=== PATIENT | female | born 1990 | race Two or more races ===

== ENCOUNTER 2020-02-08 08:45 | Inpatient (IN) | payer OTHER ==
[~2020-02-08] VITALS: Ht 154.9 cm; Wt 68.5 kg
[2020-02-14] MEDS ORDERED: INTEGRA F CAPS1 EACH PO (09:46)
== END 2020-02-16 11:00 | disposition home or self-care (01) | DRG 807 ==
LOC: LDR 02-14 06:41 → SURG-SUITE 02-14 06:41 → LDR 02-14 06:47 → SURG-SUITE 02-14 15:47 → SURH 02-15 08:45 → SURG-SUITE 02-15 18:08
PROVIDERS: ADMIT Obstetrics & Gynecology; ATTEND Obstetrics & Gynecology
PROC: 10E0XZZ Delivery of Products of Conception, External Approach (ICD-10-PCS; principal; 2020-02-14)
PROC: 0KQM0ZZ Repair Perineum Muscle, Open Approach (ICD-10-PCS; 2020-02-14)
PROC: 3E033VJ Introduction of Other Hormone into Peripheral Vein, Percutaneous Approach (ICD-10-PCS; 2020-02-14)
PROC: 10907ZC Drainage of Amniotic Fluid, Therapeutic from Products of Conception, Via Natural or Artificial Opening (ICD-10-PCS; 2020-02-14)
PROC: 4A1HXCZ Monitoring of Products of Conception, Cardiac Rate, External Approach (ICD-10-PCS; 2020-02-14)
DX: O70.1 Second degree perineal laceration during delivery (principal); Z37.0 Single live birth; Z3A.39 39 weeks gestation of pregnancy; Z20.828 Contact with and (suspected) exposure to other viral communicable diseases